=== PATIENT | female | born 2000 | race American Indian/Alaskan Native ===

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

== ENCOUNTER 2021-01-29 10:50 | Emergency (ER) | payer MEDICAID ==
[2021-01-29] MEDS ORDERED: SODIUM CHLORIDE 0.9% 1000 ML 1,000 ML IV ONE (11:28)
[2021-01-29] MEDS ORDERED: ONDANSETRON 4 MG/2 ML INJ IV ONE (11:28)
[2021-01-29 11:56] LABS: Basophils % (Auto) 0.4 % (0.0-1.8); Eosinophils # (Auto) 0.1 K/mm3 (0.0-0.4); Eosinophils % (Auto) 2.1 % (0.0-4.3); Hematocrit 34.2 % (30.3-42.9); Hemoglobin 12.3 gm/dl (10.1-14.3); Lymphocytes # (Auto) 1.5 K/mm3 (1.2-5.4); Mean Corpuscular HGB Conc 36 % (30-34); Mean Corpuscular Volume 86 fl (79-97); Monocytes # (Auto) 0.6 K/mm3 (0.0-0.8); Monocytes % (Auto) 8.4 % (0.0-7.3); Platelet Count 236 K/mm3 (140-440); Red Blood Count 3.97 M/mm3 (3.65-5.03); Red Cell Distribution Width 12.9 % (13.2-15.2)
[2021-01-29 12:11] LABS: Alanine Aminotransferase 24 units/L (7-56); Albumin 3.9 g/dL (3.9-5); Blood Urea Nitrogen 7 mg/dL (7-17); Calcium 9.7 mg/dL (8.4-10.2); Hemolysis Index 10
[2021-01-29 12:12] LABS: BUN/Creatinine Ratio 18
--- NOTE | 2021-01-29 12:23 | Emergency Department Report ---
ED General Adult HPI - General Chief complaint: Nausea/Vomiting/Diarrhea Stated complaint: VOMITING Time Seen by Provider: 01/29/21 11:09 Source: patient Mode of arrival: Ambulatory Limitations: No Limitations - History of Present Illness Initial comments: 20-year-old -Togolese who is 13 weeks presents to the emergency room complaining of intermittent sharp lower abdominal pain nausea vomiting. Patient reports she is having lower back pain but feels different from her chronic back pain. Patient complains of shortness of breath but denies any chest pain lightheadedness and just being tired. Patient reports her back pain is worse with standing and taking deep breaths. Denies any recent travels denies any recent traumas. Patient reports her abdominal pain is cramping and has not been able to urinate since she is not able to hold fluids down. Patient's is 1 para 0 last menstrual period 4--21. She reports her expected date of delivery is 08/05/2021. Patient denies any vaginal bleeding no vaginal discharge. Reports her pain is 7 out of 10. Onset/Timin -: week(s) Location: back, pelvis Radiation: non-radiation Severity scale (0 -10): 7 Quality: crushing, sharp Consistency: constant Improves with: none Associated Symptoms: loss of appetite, nausea/vomiting, other (Malaise). denies : chest pain, cough, diaphoresis, fever/chills, rash Treatments Prior to Arrival: other (Has been taking Zofran Reglan thought relief) - Related Data Previous Rx's Medication Instructions Recorded Last Taken Type Ibuprofen [Motrin] 400 mg PO TID PRN #10 tablet 09/20/13 Unknown Rx Allergies Allergy/AdvReac Type Severity Reaction Status Date / Time cod liver oil Allergy Hives Verified 09/20/13 19:10 fluticasone propionate Allergy Anaphylaxis Verified 09/20/13 19:10 [From Flonase] ED Review of Systems ROS: Stated complaint: VOMITING Other details as noted in HPI Comment: All other systems reviewed and negative ED Past Medical Hx - Past Medical History Hx GERD: Yes Hx Asthma: Yes Additional medical history: 2 broken vertebrae, Dec. broke right shoulder. Hip fracture 2012 - Surgical History Additional Surgical History: Nose - Social History Smoking Status: Never Smoker Substance Use Type: None - Medications Home Medications: Home Medications Medication Instructions Recorded Confirmed Last Taken Type Ibuprofen [Motrin] 400 mg PO TID PRN #10 tablet 09/20/13 Unknown Rx ED Physical Exam - General Limitations: No Limitations General appearance: alert, in no apparent distress - Head Head exam: Present: atraumatic, normocephalic - Eye Eye exam: Present: normal appearance - ENT ENT exam: Present: normal external ear exam - Neck Neck exam: Present: normal inspection, full ROM - Respiratory Respiratory exam: Present: normal lung sounds bilaterally. Absent: chest wall tenderness, accessory muscle use - Cardiovascular Cardiovascular Exam: Present: regular rate, normal rhythm - GI/Abdominal GI/Abdominal exam: Present: soft, tenderness (Suprapubic). Absent: distended ED Course Vital Signs 01/29/21 01/29/21 01/29/21 11:10 11:17 11:22 Temperature 98.7 F 98.7 F Pulse Rate 82 84 85 Respiratory 18 16 Rate Blood Pressure 119/80 Blood Pressure 119/80 [Right] O2 Sat by Pulse 98 98 98 Oximetry ED Medical Decision Making - Lab Data Result diagrams: 01/29/21 11:27 01/29/21 11:27 - Radiology Data Radiology results: report reviewed Institution [facility] Approval Date 2021-01-29 15:54:27 Other Patient ID My Comment(s) Study Comments [facility] [address] [place] [address] Ultrasound Report Signed Patient: MEGAN DE LEON MR#: [id number] : 2000 Acct:[id number] Age/Sex: 20 / F ADM Date: 01/29/21 Loc: ED Attending Dr: Ordering Physician: JER IVORY Date of Service: 01/29/21 Procedure(s): US OB <= 14 weeks fetus Accession Number(s): [id number] cc: JER IVORY ULTRASOUND OBSTETRIC INDICATION / CLINICAL INFORMATION: Abdominal cramping. Hyperemesis and pelvic pain. Clinical Gestational Age (GA) in weeks, days: 13, 1 TECHNIQUE: Transabdominal. COMPARISON: None available. FINDINGS: GESTATIONAL SAC: Well-defined oval shape and intrauterine in location. YOLK SAC: Not visualized. EMBRYO/FETUS: No significant abnormality. - [place]-Rump Length = 7.0 cm = 13, 2 weeks, days - Heart Rate, beats per minute (if present) = 155 ADNEXA: No significant abnormality. FREE FLUID: None. ADDITIONAL FINDINGS: Placenta is anterior and free of the os. IMPRESSION: 1. Single, living intrauterine with estimated sonographic age of 13, 2 weeks, days. 2. No acute sonographic abnormality. Signer Name: Alessandro Wolf MD Signed: 01/29/2021 3:47 PM Workstation Name: [id number] Transcribed By: DT Dictated By: Jordan Wolf MD Electronically Authenticated By: Jordan Wolf MD Signed Date/Time: 01/29/21 1547 DD/ 1545 TD/TT: - Medical Decision Making 20-year-old -Togolese who is 13 weeks presents to the emergency room complaining of intermittent sharp lower abdominal pain nausea vomiting. Patient reports she is having lower back pain but feels different from her chronic back pain. Patient complains of shortness of breath but denies any chest pain lightheadedness and just being tired. Patient reports her back pain is worse with standing and taking deep breaths. Denies any recent travels denies any recent traumas. Patient reports her abdominal pain is cramping and has not been able to urinate since she is not able to hold fluids down. Patient's is 1 para 0 last menstrual period 4-2-21. She reports her expected date of delivery is 08/05/2021. Patient denies any vaginal bleeding no vaginal discharge. Reports her pain is 7 out of 10. Ultrasound shows no sonographic abnormalities. 13 weeks and 2 days . Nurse reports patient is orthostatic. CBC CMP urinalysis, INT, normal saline bolus and IV Zofran 4 mg have been ordered. Patient had an ultrasound done she reports 2 weeks ago. Patient had an ultrasound done here at our hospital on 12/26/2020 when she was 8 weeks . Patient is asking to eat. We will start a p.o. challenge. Labs are stable urinalysis only shows 20 of ketones no concerns for urinary tract infection. I feel pain this is symptoms are resulting from some form anxiety as this is patient's first . Her also she is dealing with the care of her mother who has multiple medical issues and is actually being seen in our emergency room as well. Critical care attestation.: If time is entered above; I have spent that time in minutes in the direct care of this critically ill patient, excluding procedure time. ED Disposition Clinical Impression: Abdominal pain, Hyperemesis gravidarum before end of 22 week gestation with carbohydrate depletion Disposition: DC- TO HOME OR SELFCARE Is pt being admited?: No Does the pt Need Aspirin: No Condition: Stable Additional Instructions: Ultrasounds negative for any concerns per your 13 weeks and 2 days . Urinalysis is within normal limits. Labs are stable. Follow-up with the COACH OPERATOR. Continue with your antinausea medication. I do recommend gjpw-kaa-uxawvcs kanchan root 250 mg twice a day B6 50 mg twice a day and Unisom sleep aid twice a day as this can help with your nausea and vomiting. Be aware that this can make you sleepy. Referrals: PRIMARY CARE, [Primary Care Provider] - 3-5 Days You are, COACH OPERATOR [Other] - 3-5 Days
[2021-01-29 13:03] LABS: Bilirubin,Urine NEG (Negative); Blood,Urine NEG (Negative); Color,Urine Yellow (Yellow); Mucus,Urine 3+ /HPF; Urobilinogen,Urine < 2.0 mg/dL (<2.0)
--- NOTE | 2021-01-29 15:52 | Ultrasound Report ---
ULTRASOUND OBSTETRIC INDICATION / CLINICAL INFORMATION: Abdominal cramping. Hyperemesis and pelvic pain. Clinical Gestational Age (GA) in weeks, days: 13, 1 TECHNIQUE: Transabdominal. COMPARISON: None available. FINDINGS: GESTATIONAL SAC: Well-defined oval shape and intrauterine in location. YOLK SAC: Not visualized. EMBRYO/FETUS: No significant abnormality. - [place]-Rump Length = 7.0 cm = 13, 2 weeks, days - Heart Rate, beats per minute (if present) = 155 ADNEXA: No significant abnormality. FREE FLUID: None. ADDITIONAL FINDINGS: Placenta is anterior and free of the os. IMPRESSION: 1. Single, living intrauterine with estimated sonographic age of 13, 2 weeks, days. 2. No acute sonographic abnormality. Signer Name: Alessandro Wolf MD Signed: 01/29/2021 3:47 PM Workstation Name: [id number]
[2021-01-29 17:07] VITALS: BP 111/61
== END 2021-01-29 17:07 | disposition home or self-care (01) ==
LOC: ED 10:50
DX: O21.1 Hyperemesis gravidarum with metabolic disturbance (principal); O26.891 Other specified pregnancy related conditions, first trimester; R10.30 Lower abdominal pain, unspecified; K21.9 Gastro-esophageal reflux disease without esophagitis; J45.909 Unspecified asthma, uncomplicated; Z91.018 Allergy to other foods; Z79.899 Other long term (current) drug therapy; Z88.8 Allergy status to other drugs, medicaments and biological substances; Z3A.13 13 weeks gestation of pregnancy
CPT/HCPCS: 36415; 76801; 80053; 81001; 85025; 96361; 96374; 99284; J2405; J7030

== ENCOUNTER 2021-04-24 15:58 | Outpatient (CLI) | payer MEDICAID ==
[2021-04-24 16:36] VITALS: BP 121/65
[2021-04-24] MEDS ORDERED: LACTATED RINGERS 500 ML IV ONE (16:50)
[2021-04-24 17:23] LABS: Bacteria,Urine 2+ /HPF (Negative); Bilirubin,Urine NEG (Negative); Blood,Urine NEG (Negative); Color,Urine Yellow (Yellow); Mucus,Urine FEW /HPF; Protein,Urine <15 mg/dL mg/dL (Negative); Urobilinogen,Urine < 2.0 mg/dL (<2.0)
== END 2021-04-24 18:41 | disposition home or self-care (01) ==
LOC: TRG 15:58 → APU 16:00 → TRG 18:41
PROVIDERS: ATTEND Obstetrics & Gynecology
DX: Z34.92 Encounter for supervision of normal pregnancy, unspecified, second trimester (principal); Z3A.25 25 weeks gestation of pregnancy
CPT/HCPCS: 59025; 81001

== ENCOUNTER 2021-07-15 21:41 | Outpatient (CLI) | payer MEDICAID ==
[2021-07-15 21:58] VITALS: BP 124/77
[2021-07-16 01:05] LABS: Bilirubin,Urine NEG (Negative); Blood,Urine NEG (Negative); Color,Urine Straw (Yellow); Protein,Urine <15 mg/dL mg/dL (Negative); Urobilinogen,Urine < 2.0 mg/dL (<2.0)
--- NOTE | 2021-07-16 02:47 | Ultrasound Report ---
ULTRASOUND OBSTETRIC LIMITED ULTRASOUND BIOPHYSICAL PROFILE INDICATION / CLINICAL INFORMATION: Evaluate well-being. COMPARISON: OB ultrasound from 01/29/2021. FINDINGS: BREATHING MOVEMENT = 2 GROSS BODY MOVEMENT = 2 TONE = 2 QUALITATIVE AMNIOTIC FLUID VOLUME = 2 TOTAL BIOPHYSICAL SCORE = 8/8 AMNIOTIC FLUID INDEX (cm) = 9.5 PRESENTATION: Cephalic. HEART RATE (beats per minute): 150 ADDITIONAL FINDINGS: None. IMPRESSION: 1. Biophysical Score = 8/8 Signer Name: Josiah Diaz MD Signed: 07/16/2021 2:42 AM Workstation Name: [id number]
== END 2021-07-16 00:30 | disposition home or self-care (01) ==
LOC: TRG 21:41 → APU 21:48 → TRG 07-16 00:30
PROVIDERS: ATTEND Obstetrics & Gynecology
DX: O26.893 Other specified pregnancy related conditions, third trimester (principal); R10.9 Unspecified abdominal pain; R10.2 Pelvic and perineal pain; M54.9 Dorsalgia, unspecified; Z3A.37 37 weeks gestation of pregnancy
CPT/HCPCS: 76815; 76819; 81001

== ENCOUNTER 2021-07-25 11:12 | Outpatient (CLI) | payer MEDICAID ==
[2021-07-25 11:45] VITALS: BP 122/78
== END 2021-07-25 13:37 | disposition home or self-care (01) ==
LOC: TRG 11:12 → APU 11:13 → TRG 13:37
PROVIDERS: ATTEND Obstetrics & Gynecology
DX: Z34.93 Encounter for supervision of normal pregnancy, unspecified, third trimester (principal); Z3A.38 38 weeks gestation of pregnancy
CPT/HCPCS: 59025